=== PATIENT | male | born 1925 | race Caucasian/White ===

== ENCOUNTER 2016-10-04 19:15 | Emergency (ER) | payer OTHER ==
[~2016-10-04] VITALS: Ht 149.9 cm; Wt 59.0 kg
[2016-10-04 19:38] VITALS: Ht 149.9 cm; Wt 59.0 kg
[2016-10-04] MEDS ORDERED: IPRATROPIUM (NEB) 0.5 MG/2.5 ML AMP NEB STA (20:09)
[2016-10-04] MEDS ORDERED: METHYLPREDNISOLONE 125 MG INJ IV STA (20:09)
[2016-10-04] MEDS ORDERED: SODIUM CHLORIDE 0.9% 1L BAG IV* STA (20:09)
[2016-10-04] MEDS ORDERED: ALBUTEROL 0.5% (NEB) 2.5 MG/0.5 ML AMP NEB STA (20:09)
--- NOTE | 2016-10-04 20:33 | RADRPT ---
PROCEDURE: XR Chest. CLINICAL INDICATION: Sepsis TECHNIQUE: Single AP view COMPARISON: None. FINDINGS: The cardiomediastinal silhouette is within normal limits of size . Atherosclerotic aortic calcificat ion. . Linear densities in the lower lobes bilaterally compared with atelectasis or scarring. No p neumothorax. The osseous structures and soft tissues are unremarkable. IMPRESSION: 1. Bibasilar atelectasis or scarring. No acute intrathoracic abnormality. RPTAT:AAJJ Mimi Dash Physician Date Time Electronically viewed and signed by Physician Ana on 10/04/2016 20:33 DARIEL/
[2016-10-04 20:49] LABS: BASOPHILS % 0.1 % (0.0-2.0); EOSINOPHILS # 0.2 10^3/ul (0.0-0.5); HEMATOCRIT 37.2 % (42.0-52.0); HEMOGLOBIN 12.2 g/dl (14.0-18.0); LYMPHOCYTES # 1.5 10^3/ul (0.8-2.9); LYMPHOCYTES % 18.3 % (15.0-51.0); MEAN CORPUSCULAR HEMOGLOBIN 28.9 pg (29.0-33.0); MEAN CORPUSCULAR HGB CONC 32.8 g/dl (32.0-37.0); MEAN CORPUSCULAR VOLUME 88.2 fl (82.0-101.0); MEAN PLATELET VOLUME 7.8 fl (7.4-10.4); MONOCYTE # 0.5 10^3/ul (0.3-0.9); NEUTROPHIL # 5.9 10^3/ul (1.6-7.5); NEUTROPHILS % 72.6 % (39.0-77.0); PLATELET COUNT 278 10^3/UL (140-440); RED BLOOD COUNT 4.21 10^6/ul (4.70-6.10); RED CELL DISTRIBUTION WIDTH 18.4 % (11.5-14.5); UNCORRECTED WBC 8.2 10^3/ul (4.8-10.8); WHITE BLOOD COUNT 8.2 10^3/ul (4.8-10.8)
[2016-10-04 20:56] LABS: INR 0.87; PARTIAL THROMBOPLASTIN TIME 24.9 Sec (25.0-35.0); PROTIME 11.8 Sec (12.2-14.2); PT RATIO 0.9
[2016-10-04 21:01] LABS: CONDITION 1; LH ANALYZER COMMENTS 1
[2016-10-04 21:15] LABS: POTASSIUM 4.3 mmol/L (3.5-5.1)
[2016-10-04 21:18] LABS: ALBUMIN/GLOBULIN RATIO 1.73; BILIRUBIN,INDIRECT 0.1 mg/dl (0-1.1); BILIRUBIN,TOTAL 0.1 mg/dl (0.2-1.3); CALCIUM 10.2 mg/dl (8.4-10.2); CREATININE 2.06 mg/dl (0.61-1.24); TOTAL PROTEIN 6.3 g/dl (6.1-8.1)
[2016-10-04 21:29] LABS: TROPONIN-I 0.021 ng/ml (0.00-0.12)
[2016-10-04 21:50] VITALS: BP 163/81; PULSE 81; RESP 20
[2016-10-04] MEDS ORDERED: PRED20TA PO (21:51)
[2016-10-04] MEDS ORDERED: ALBU8.5H3 INH (21:51)
--- NOTE | 2016-10-04 21:51 | ERD ---
ER Documentation Chief Complaint Date/Time DATE: 10/04/16 TIME: 21:48 Chief Complaint SOB, pt was a smoker HPI This is an 89-year-old male who presents to the emergency room for evaluation of shortness of breath. The patient was diagnosed with pneumonia today. He was started on azithromycin. The patient presents to the ER today for continued shortness of breath. The patient has not had a fever, and has had a dry cough is nonproductive according to the was at bedside. The patient is denying any chest pain or palpitations at this time ROS All systems reviewed and are negative except as per history of present illness. Allergies Allergies: Coded Allergies: No Known Allergy (Unverified , 10/04/16) Physical Exam Vitals Vital Signs Date Time Temp Pulse Resp B/P Pulse Ox O2 Delivery O2 Flow Rate FiO2 10/04/16 21:40 85 20 163/81 100 Room Air 10/04/16 20:35 75 20 172/73 97 Room Air 10/04/16 20:35 Nasal Cannula 10/04/16 20:23 66 14 99 21 10/04/16 19:38 97.7 66 22 173/82 92 Physical Exam INITIAL VITAL SIGNS: Reviewed by me GENERAL: The patient is well developed and appropriate for usual state of health in no apparent distress HEENT: Pupils equal, round, and reactive to light. EOMI. There is no scleral icterus. NECK: C-spine is soft and supple, there is no meningismus. There is no cervical lymphadenopathy. LUNGS: Wheezing auscultated in the right middle and right lower lobe, no rhonchi HEART: Regular rate and rhythm, no murmurs, clicks, rubs or gallops. ABDOMEN: Soft, non-tender, non-distended. There are bowel sounds in all four quadrants. No rebound or guarding. EXTREMITIES: There is no peripheral cyanosis or edema. No focal swelling or erythema. NEUROLOGICAL: The patient moves all four extremities with 5/5 strength. Cranial nerves II - XII are intact. Normal gait. Alert and oriented SKIN: There is no apparent rash or petechiae. HEME/LYMPHATIC: There is no evidence of excessive bruising or lymphedema. PSYCHIATRIC: The patient does not appear anxious or depressed. Result Diagram: 10/04/16202410/04/162024 Results 24 hrs Laboratory Tests Test 10/04/16 20:25 Activated Partial Thromboplast Time 24.9Sec Alanine Aminotransferase (ALT/SGPT) 35IU/L Albumin 4.0g/dl Albumin/Globulin Ratio 1.73 Alkaline Phosphatase 61IU/L Anion Gap 15 Aspartate Amino Transf (AST/SGOT) 26IU/L Basophils # 0.010^3/ul Basophils % 0.1% Blood Morphology Comment Blood Urea Nitrogen 36mg/dl Calcium Level 10.2mg/dl Carbon Dioxide Level 28mmol/L Chloride Level 102mmol/L Creatinine 2.06mg/dl Direct Bilirubin 0.00mg/dl Eosinophils # 0.210^3/ul Eosinophils % 3.0% Globulin 2.30g/dl Glucose Level 104mg/dl Hematocrit 37.2% Hemoglobin 12.2g/dl INR International Normalized Ratio 0.87 Indirect Bilirubin 0.1mg/dl Lactic Acid Level 2.0mmol/L Lymphocytes # 1.510^3/ul Lymphocytes % 18.3% Mean Corpuscular Hemoglobin 28.9pg Mean Corpuscular Hemoglobin Concent 32.8g/dl Mean Corpuscular Volume 88.2fl Mean Platelet Volume 7.8fl Monocytes # 0.510^3/ul Monocytes % 6.0% Neutrophils # 5.910^3/ul Neutrophils % 72.6% Nucleated Red Blood Cells # 0.010^3/ul Nucleated Red Blood Cells % 0.0/100WBC Platelet Count 94262^3/UL Potassium Level 4.3mmol/L Prothrombin Time 11.8Sec Prothrombin Time Ratio 0.9 Red Blood Count 4.2110^6/ul Red Cell Distribution Width 18.4% Sodium Level 141mmol/L Total Bilirubin 0.1mg/dl Total Protein 6.3g/dl Troponin I 0.021ng/ml White Blood Count 8.210^3/ul Current Medications Medications (Trade) Dose Ordered Sig/Marcos Route PRN Reason Start Time Stop Time Status Last Admin Dose Admin Sodium Chloride (NS) 1,830 ml BOLUS OVER 2 HOURS STAT IV* 10/04/16 20:09 10/04/16 20:10 DC 10/04/16 20:35 Albuterol (Proventil 0.5% (Neb)) 10 mg ONCE STAT NEB 10/04/16 20:09 10/04/16 20:11 DC 2/22/17 20:23 Ipratropium Colton (Atrovent 0.02% (Neb)) 0.5 mg ONCE STAT NEB 10/04/16 20:09 10/04/16 20:11 DC 10/04/16 20:23 Methylprednisolone Sodium Succinate (Solu-Medrol) 125 mg ONCE STAT IV 10/04/16 20:09 10/04/16 20:11 DC 10/04/16 20:50 Procedures/MDM EKG: Rate/Rhythm: [Normal Sinus Rhythm] QRS, ST, T-waves: [No changes consistent w/ acute ischemia] Impression: [No evidence of ischemia or arrhythmia] Chest X-ray 1V Interpreted by me: Soft Tissue: Bibasilar atelectasis Bones: No acute abnormalities Mediastinum/Cardiac Silhouette/Lungs: [No acute abnormalities] This 89-year-old male presents to the emergency room for evaluation of shortness of breath. This patient was diagnosed with pneumonia today. X-ray in the emergency room does not show any gross infiltrates. The patient is not hypoxic, however he did have wheezing on my examination. This patient was given a breathing treatment with albuterol and Atrovent and was also given Solu- Medrol. When I reevaluated this patient states he is feeling much better at this time and states that he is in no acute distress. This patient's lab work is within normal limits, troponin is normal, EKG is nonischemic, and the patient will be discharged home at this time with a prescription for ProAir inhaler, and prednisone to take over the course of the next 3 days as I do feel he has a component of inflammation to his shortness of breath. I advised the patient and the patient's to return to the ER immediately if his symptoms were to worsen and they verbalized understanding. Departure Diagnosis: Primary Impression: Asthmatic bronchitis Additional Impressions: Normocytic anemia Renal insufficiency Condition: SARAH Stafford DO Oct 04, 2016 21:51
[2016-10-04 22:08] LABS: ADD UMIC YES; URINE BILIRUBIN (Dip) NEGATIVE (NEGATIVE); URINE BLOOD (Dip) NEGATIVE (NEGATIVE); URINE COLOR LT. YELLOW (YELLOW); URINE GLUCOSE (Dip) NEGATIVE (NEGATIVE); URINE KETONES (Dip) NEGATIVE (NEGATIVE); URINE LEUKOCYTE ESTERASE (Dip) TRACE (NEGATIVE); URINE NITRITE (Dip) NEGATIVE (NEGATIVE); URINE TOTAL PROTEIN (Dip) NEGATIVE (NEGATIVE); URINE UROBILINOGEN (Dip) 0.2 E.U./dL (0.1-1.0)
[2016-10-04 22:20] LABS: URINE RBCS NONE SEEN /HPF (0)
== END 2016-10-04 22:13 | disposition home or self-care (01) ==
LOC: E/R 19:15
DX: J45.901 Unspecified asthma with (acute) exacerbation (principal); N28.9 Disorder of kidney and ureter, unspecified; D64.9 Anemia, unspecified; F17.210 Nicotine dependence, cigarettes, uncomplicated
CPT/HCPCS: 36415; 71010; 80053; 81001; 83605; 84484; 85025; 85610; 85730; 87040; 87086; 93005; 94644; 96374; 99285; J2930; J7030; 81003

== ENCOUNTER 2016-12-03 12:18 | Emergency (ER) | payer OTHER ==
[~2016-12-03] VITALS: Ht 152.4 cm; Wt 54.5 kg
[~2016-12-03 12:18] MED LIST: ALBU8.5H3 INH; PRED20TA PO
[2016-12-03 13:09] VITALS: Ht 152.4 cm; Wt 54.5 kg
== END 2016-12-03 13:15 | disposition left against medical advice (07) ==
LOC: E/R 12:18
DX: Z53.21 Procedure and treatment not carried out due to patient leaving prior to being seen by health care provider (principal)